=== PATIENT | female | born 1980 | race Caucasian/White ===

== ENCOUNTER → 2016-12-19 | Outpatient (CLI) | payer OTHER ==
--- NOTE | 2016-12-19 10:14 | XR ---
EXAMINATION TYPE: XR hand complete LT DATE OF EXAM: 12/19/2016 10:06 AM COMPARISON: NONE HISTORY: Left TECHNIQUE: 3 views are submitted. FINDINGS: The osseous structures are intact. The joint spaces are preserved and there is no acute fracture or dislocation. IMPRESSION: 1. No definite acute fracture or dislocation if symptoms persist, follow-up study in 7 to 10 days wo uld be suggested
== END | disposition home or self-care (01) ==
LOC: RADXRMAIN 09:36
PROVIDERS: ATTEND Emergency Medicine
DX: S60.222A Contusion of left hand, initial encounter (principal)

== ENCOUNTER → 2016-12-25 | Outpatient (CLI) | payer OTHER ==
--- NOTE | 2016-12-25 11:43 | XR ---
EXAMINATION TYPE: XR hand complete LT DATE OF EXAM: 12/25/2016 11:36 AM COMPARISON: NONE HISTORY: Pain TECHNIQUE: Three views are submitted. FINDINGS: The osseous structures are intact. The joint spaces are preserved and there is no acute fracture or dislocation. IMPRESSION: 1. No definite acute fracture or dislocation if symptoms persist, follow-up study in 7 to 10 days wo uld be suggested
== END | disposition home or self-care (01) ==
LOC: RADXRMAIN 11:16
PROVIDERS: ATTEND Emergency Medicine
DX: S60.222A Contusion of left hand, initial encounter (principal)

== ENCOUNTER → 2016-12-26 | Outpatient (CLI) | payer OTHER ==
--- NOTE | 2016-12-26 08:43 | XR ---
EXAMINATION TYPE: XR wrist complete LT DATE OF EXAM: 12/26/2016 8:34 AM COMPARISON: NONE HISTORY: Pain TECHNIQUE: 4 views submitted. FINDINGS: The osseous structures are intact. The joint spaces are preserved and there is no acute fracture or dislocation. IMPRESSION: 1. No definite acute fracture or dislocation if symptoms persist, follow-up study in 7 to 10 days wo uld be suggested
== END | disposition home or self-care (01) ==
LOC: RADXRMAIN 08:21
PROVIDERS: ATTEND Emergency Medicine
DX: S60.222A Contusion of left hand, initial encounter (principal); X58.XXXA Exposure to other specified factors, initial encounter

== ENCOUNTER → 2020-03-16 | Outpatient (CLI) | payer OTHER ==
--- NOTE | 2020-03-16 17:35 | XR ---
EXAMINATION TYPE: XR shoulder complete RT, XR clavicle RT DATE OF EXAM: 03/16/2020 CLINICAL HISTORY: Pain after lifting injury. TECHNIQUE: Three views of the right shoulder are obtained. 2 views right clavicle. COMPARISON: None. FINDINGS: There is no acute fracture/dislocation evident in the right shoulder. The acromioclavicul ar and glenohumeral joint spaces appear within normal limits. Distal acromion morphology unremarkable . The visualized ribs are intact and unremarkable. Images of right clavicle show no acute displaced fracture. Overlying soft tissue unremarkable. Visual ized right lung apex is clear. IMPRESSION: There is no acute fracture or dislocation in the right clavicle or shoulder.
== END | disposition home or self-care (01) ==
LOC: RADXRMAIN 15:54
PROVIDERS: ATTEND Emergency Medicine
DX: S46.811A Strain of other muscles, fascia and tendons at shoulder and upper arm level, right arm, initial encounter (principal)

== ENCOUNTER → 2020-03-31 | Outpatient (CLI) | payer OTHER ==
--- NOTE | 2020-04-01 13:35 | MR ---
EXAMINATION TYPE: MR shoulder RT wo con DATE OF EXAM: 03/31/2020 COMPARISON: Plain film 03/16/2020 HISTORY: Was lifting item up above head and had Pain in Shoulder Joint. Still having Pain at all time s in the Right shoulder. TECHNIQUE: Multiplanar, multisequence imaging of the right shoulder is performed without contrast. FINDINGS: Rotator Cuff: At the undersurface of the rotator cuff there is some focal increased signal, some intr insic increased signal is noted suggesting partial undersurface tear Acromioclavicular Joint: Arthropathy changes present causing some mass effect on the musculotendinous junction of supraspinatus. There is some hypertrophic change, possible reactive marrow signal change involving the distal clavicle, no definite ligamentous disruption although there may be some local l igamentous strain. No evident bone erosion. Glenohumeral Joint: Intact Labrum: The labrum appears grossly intact given limitation of non-arthrogram study, question some lab ral foramen anteriorly. Biceps Tendon: The long head of biceps is in normal location within bicipital groove, some fluid sign al along the biceps tendon may represent tenosynovitis. Bone marrow signal: Some increased signal is noted distal clavicle Other: No additional significant abnormality is appreciated. IMPRESSION: Partial tear of the undersurface of the rotator cuff tendon. Correlate for tenderness at the acromioc lavicular joint, possible reactive marrow signal changes or arthropathy. No evident acromioclavicular separation.
== END | disposition home or self-care (01) ==
LOC: RADMRIMAIN 15:22
PROVIDERS: ATTEND Emergency Medicine
DX: M75.111 Incomplete rotator cuff tear or rupture of right shoulder, not specified as traumatic (principal)

== ENCOUNTER → 2020-05-26 | Outpatient (CLI) | payer MEDICAID | END | disposition home or self-care (01) | LOC: LABWHC1 14:31 | PROVIDERS: ATTEND Pediatrics Pediatric Infectious Diseases | DX: Z20.828 Contact with and (suspected) exposure to other viral communicable diseases (principal) | CPT/HCPCS: 87635; C9803 ==